=== PATIENT | male | born 1935 | race Hispanic/Latino ===

== ENCOUNTER 2021-01-05 10:06 | Emergency (ER) | payer OTHER, MEDICARE ==
[~2021-01-05] VITALS: Ht 152.4 cm; Wt 65.8 kg
[2021-01-05 10:18] VITALS: BP 155/69
[2021-01-05] MEDS ORDERED: TETRACAINE HCL 0.5% 4 ML OPHTH SOLN OP SCH (11:00)
[2021-01-05] MEDS ORDERED: FLUORESCEIN SODIUM 1 STRIP STRIP OP SCH (11:00)
[2021-01-05] MEDS ORDERED: ACET1TAB25 PO (12:01)
[2021-01-05] MEDS ORDERED: ERYTHROMYCIN BASE 0.5% OPHTH OINT 1 GM TUBE OU SCH (12:15)
== END 2021-01-05 12:30 | disposition home or self-care (01) ==
LOC: EDH 10:06
DX: S05.01XA Injury of conjunctiva and corneal abrasion without foreign body, right eye, initial encounter (principal); H10.9 Unspecified conjunctivitis; X58.XXXA Exposure to other specified factors, initial encounter; Y93.89 Activity, other specified; Y92.89 Other specified places as the place of occurrence of the external cause; Y99.8 Other external cause status

== ENCOUNTER 2022-05-10 03:54 | Emergency (ER) | payer OTHER, MEDICARE ==
[~2022-05-10] VITALS: Ht 165.1 cm; Wt 67.1 kg
[~2022-05-10 03:54] MED LIST: ACET-2079 PO
[2022-05-10] MEDS ORDERED: ONDANSETRON 4MG INJ IVP ONE (04:30)
[2022-05-10 04:51] LABS: BASOPHILS % (AUTO) 0.6 % (0.0-5.0); EOSINOPHILS % (AUTO) 3.6 % (0.0-8.0); HEMATOCRIT 34.5 % (42-54); LYMPHOCYTES % (AUTO) 22.8 % (21.0-51.0); MEAN CORPUSCULAR HEMOGLOBIN 33.1 pg (27.0-33.0); MEAN CORPUSCULAR HGB CONC 33.9 g/dL (32.0-36.0); MEAN CORPUSCULAR VOLUME 97.5 fL (79-99); MONOCYTES % (AUTO) 12.5 % (3.0-13.0); NEUTROPHILS % (AUTO) 60.2 % (40.0-77.0); PLATELET COUNT (AUTO) 147 K/uL (130-400); RED BLOOD CELL COUNT(AUTO) 3.54 MIL/uL (4.50-6.20); RED CELL DISTRIBUTION WIDTH 12.7 % (11.0-15.5); WHITE BLOOD COUNT (AUTO) 3.6 K/uL (4.8-10.8)
[2022-05-10] MEDS ORDERED: MECLIZINE HCL 12.5 MG TABLET ONE (04:51)
[2022-05-10 04:52] LABS: APPEARANCE,URINE CLEAR (CLEAR); BILIRUBIN,URINE NEGATIVE (NEGATIVE); GLUCOSE, URINE (UA) 70 mg/dL (NEGATIVE); KETONES,URINE NEGATIVE (NEGATIVE); LEUKOCYTE ESTERASE ,URINE NEGATIVE Leu/uL (NEGATIVE); NITRATE,URINE NEGATIVE (NEGATIVE); PROTEIN,URINE NEGATIVE (NEGATIVE); UROBILINOGEN,URINE 0.2 mg/dL (0.2-1.0)
[2022-05-10 04:53] LABS: COLOR,URINE LIGHT-YELLOW (YELLOW)
[2022-05-10 04:55] LABS: MUCUS,URINE RARE LPF (None Seen); WBC,URINE 0-1 /HPF (0-1)
[2022-05-10 04:58] LABS: CREATININE 1.2 mg/dL (0.5-1.5)
[2022-05-10] MEDS ORDERED: MECLIZINE HCL 12.5 MG TABLET PO ONE (05:00)
[2022-05-10 05:04] LABS: ALBUMIN 4.1 g/dL (3.5-5.0); TOTAL PROTEIN, SERUM 7.3 g/dL (6.0-8.3)
[2022-05-10] MEDS ORDERED: 0.9% NACL 500ML IV.SOLN 500 ML IV ONE (06:00)
[2022-05-10] MEDS ORDERED: ACETAMINOPHEN 325 MG TAB ONE (09:13)
[2022-05-10 09:17] VITALS: BP 149/64
[2022-05-10] MEDS ORDERED: MECL-160 PO (09:17)
[2022-05-10] MEDS ORDERED: ACET325T51 PO (09:17)
[2022-05-10] MEDS ORDERED: ACETAMINOPHEN 325 MG TAB PO ONE (09:30)
== END 2022-05-10 09:19 | disposition home or self-care (01) ==
LOC: EDH 03:54
DX: R42 Dizziness and giddiness (principal); H83.09 Labyrinthitis, unspecified ear; R51.9 Headache, unspecified; Z20.822 Contact with and (suspected) exposure to COVID-19; E11.9 Type 2 diabetes mellitus without complications; E78.00 Pure hypercholesterolemia, unspecified; I10 Essential (primary) hypertension; Z88.0 Allergy status to penicillin; Z98.890 Other specified postprocedural states
CPT/HCPCS: 99285; 96374; 70450; 71045; 87635; 96361; 84484; 80053; 83690; 85025; 87804 ×2; 81001; 36415; 93005; C9803; J7040; J2405

== ENCOUNTER 2022-11-16 20:12 | Emergency (ER) | payer OTHER, MEDICARE ==
[~2022-11-16] VITALS: Ht 165.1 cm; Wt 70.3 kg
[~2022-11-16 20:12] MED LIST changes: +ACET325T51 PO; +MECL-160 PO
[2022-11-16 20:54] VITALS: BP 142/62
[2022-11-17] MEDS ORDERED: IBUP-1493 PO (00:38)
== END 2022-11-17 00:53 | disposition home or self-care (01) ==
LOC: EDH 20:12
DX: M25.561 Pain in right knee (principal); I10 Essential (primary) hypertension; E11.9 Type 2 diabetes mellitus without complications; E78.00 Pure hypercholesterolemia, unspecified; Z88.0 Allergy status to penicillin; Z79.899 Other long term (current) drug therapy; Z98.890 Other specified postprocedural states; W18.39XA Other fall on same level, initial encounter; Y93.89 Activity, other specified; Y92.89 Other specified places as the place of occurrence of the external cause; Y99.8 Other external cause status
CPT/HCPCS: 73562